=== PATIENT | male | born 1950 | race Two or more races ===

== ENCOUNTER 2017-07-06 12:11 | Outpatient (CLI) | payer BC, MEDICARE ==
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
== END 2017-07-06 14:11 | disposition home or self-care (01) ==
LOC: RAD 12:11
DX: R05 Cough (principal)
CPT/HCPCS: 71046